=== PATIENT | male | born 1955 | race Caucasian/White ===

== ENCOUNTER 2018-06-24 10:41 | Inpatient (IN) ==
--- NOTE | 2018-06-19 16:10 | MH ---
cc: Dioni Randall MD DATE OF ADMISSION: 06/24/2018 ADMITTING DIAGNOSIS: Osteoarthritic degeneration of the right hip, now being admitted for right total hip arthroplasty. HISTORY OF PRESENT ILLNESS: This pleasant 62-year-old male, known diabetic, is being admitted today for right total hip arthroplasty. PAST MEDICAL HISTORY: Has medical issues including hypertension, arthritis, sleep apnea, and type 2 diabetes. MEDICATIONS: Currently, medications include Amaryl, Jardiance, lisinopril, metformin, omega, omeprazole, rosuvastatin, and tramadol. PAST SURGICAL HISTORY: Include a left total hip arthroplasty. REVIEW OF SYSTEMS: Noncontributory. FAMILY HISTORY: Noncontributory. SOCIAL HISTORY: Does not smoke or drink. ALLERGIES: NO KNOWN ALLERGIES. PHYSICAL EXAMINATION: GENERAL: We find a 62-year-old male, well-developed, well-nourished, alert and oriented x3, complaining of pain in his right hip. VITAL SIGNS: Blood pressure 140/88, pulse 80 and regular, respirations 16, temperature 98.4, pulse oximetry 98% on room air. EYES: PERRL, EOMI. EARS, NOSE, MOUTH: Clear. NECK: Supple. LUNGS: Clear. HEART: Regular rate. ABDOMEN: Soft, positive bowel sounds, nontender. EXTREMITIES: Reveal his right hip to have decreased range of motion. Neurovascularly intact to his toes. IMPRESSION: Severe painful osteoarthritic degeneration of the right hip. PLAN: Admission for right total hip arthroplasty today. Dioni Randall MD JRR/kb/ll , 01:48 PM , 01:55 PM
[2018-06-24] MEDS ORDERED: Vancomycin Inj 1 GM/200 ML PIGGYBACK IV.SIG SCH (11:00)
[2018-06-24] MEDS ORDERED: Vancomycin Inj 1 GM/200 ML PIGGYBACK IV.SIG ONE (11:32)
[2018-06-24] MEDS ORDERED: Phenylephrine/NS 1000 MCG/10ML Syringe IV.PUSH ONE (12:00)
[2018-06-24] MEDS ORDERED: Lidocaine PF 1% Inj 5 ML Syringe INFILTRATN ONE (12:00)
[2018-06-24] MEDS ORDERED: Neostigmine Inj 5 MG/5 ML Syringe IV.PUSH ONE (12:00)
[2018-06-24] MEDS ORDERED: Glycopyrrolate Inj 1 MG/5 ML Syringe IV.PUSH ONE (12:00)
[2018-06-24] MEDS ORDERED: Chlorhexidine 4% Topical 120 APPLIC/120 ML Bottle TOPICAL SCH (12:30)
[2018-06-24] MEDS ORDERED: Chlorhexidine Gluconate 2% 1 Pack (2 Cloths) TOPICAL SCH (12:30)
[2018-06-24] MEDS ORDERED: Metoprolol Tartrate 25 MG Tablet PO SCH (12:30)
[2018-06-24] MEDS ORDERED: Sodium Chlor 0.9% Inj 500 ML IV.SIG SCH (13:00)
[2018-06-24] MEDS ORDERED: TRANEXAMIC ACID IV.SIG SCH ×2 (13:00→16:00)
[2018-06-24] MEDS ORDERED: ceFAZolin 2 GM Premix Inj 2 GM/50 ML PIGGYBACK IV.SIG SCH (13:00)
[2018-06-24] MEDS ORDERED: SODIUM CHLOR 0.9% IV.SIG SCH ×2 (13:00→16:00)
[2018-06-24] MEDS ORDERED: Sodium Chlor 0.9% Inj 40 ML, Bupivacaine Liposo PF 1.3% Inj 20 ML, Bupivacaine PF 0.25%... P-ARTICULR SCH ×3 (13:00)
[2018-06-24] MEDS ORDERED: Post-op Orders (for Pharmacy) OTHER STA (14:58)
[2018-06-24] MEDS ORDERED: Tranexamic Acid Inj 1,000 MG in Sodium Chlor 0.9% Inj 100 ML IV.SIG ONE (14:58)
[2018-06-24] MEDS ORDERED: Bisacodyl 10 MG Supp RECTAL PRN (14:58)
[2018-06-24] MEDS ORDERED: Morphine Inj 4 MG/ML Vial IV.PUSH PRN (14:58)
--- NOTE | 2018-06-24 15:03 | P.DCO ---
- Physical Therapy Order: Evaluate and treat, Improve ambulation, Strength and gait training - Certification I have seen patient Francisco Javier Bailey on 06/24/18. My clinical findings support the need for the requested home health care services because: High risk of falls I certify that my clinical findings support that this patient is homebound because: Post-op weakness, Unsteady gait/balance, Unsafe to leave home unassisted
[2018-06-24] MEDS ORDERED: fentaNYL Citrate Inj 100 MCG/2 ML Ampul ONE ×2 (16:55→16:57)
[2018-06-24] MEDS ORDERED: Dextrose 50% in Water 50 ML Vial IV.PUSH PRN (17:07)
--- NOTE | 2018-06-24 17:49 | MP ---
cc: Dioni Randall MD DATE OF OPERATION: 06/24/2018 DATE OF SURGERY: 06/24/2018 PREOPERATIVE DIAGNOSIS: Osteoarthritic degeneration, right hip. POSTOPERATIVE DIAGNOSIS: Osteoarthritic degeneration, right hip. SURGERY PERFORMED: Right total hip arthroplasty using Aesculap components, size 54 cup with a 36 mm ceramic head and a size 14 lateralized short neck stem. No cement utilized. SURGEON: Dioni Randall MD CARRIER LOADER: EDNA Paula ANESTHESIA: General intubation. PROCEDURE: The patient was brought to the Operating Room, where after successful induction of spinal anesthesia was placed on the operating room table in the left lateral decubitus position. The right hip, thigh and leg were prepped and draped in the usual manner. A posterolateral approach was then utilized by making an incision over the proximal portion of the femur lateral aspect, carried across the greater trochanter, carried posterior in a curved incision toward the buttock. The incision was carried down through the subcutaneous tissue, through the fibers of the tensor fascia josé luis and gluteus aggie to expose the greater trochanteric bursa. This was then removed by sharp and blunt dissection. The hip was then internally rotated to expose the insertions of the short external rotators of the hip and were incised at their insertion into the greater trochanter and reflected posterior to protect the sciatic nerve. These were held with a Charnley retractor to better visualize the hip joint. The capsule was identified and removed by sharp dissection. The hip was then dislocated by internal rotation and flexion of the hip. The femoral calcar was then measured using the trial components for the appropriate length cut of the neck using an oscillating saw. After the cut was made the head was removed. The acetabulum was then approached and measured, the acetabulum reamed with the acetabular reamers. Next, the femoral calcar was approached by first inserting a canal finder followed by rigid reamers, followed by a cookie-cutter to the appropriate size, in this case being a #15. The broach was left in place and a planer used to plane the calcar to a smooth finish. The broach was then removed. The trial components were then inserted into place, the hip reduced, found to track smoothly with no evidence of subluxation or dislocation. All trial components were removed. The wound was irrigated copiously with antibiotic solution and Water Pik. The actual components were then inserted and impacted into place using Aesculap components, size 54 cup with a 36 mm ceramic head and a size 14 lateralized short neck stem. No cement utilized. 60 mL of a mixture of Exparel, normal saline and 0.25% Marcaine plain was used for extra block control in the anterior portion of the hip staying away from the sciatic nerve, which was identified and protected throughout the procedure. Meticulous hemostasis was achieved. Deep fascia approximated with running #2 Quill. Subcutaneous tissue approximated using 3-0 and 4-0 running suture and interrupted and skin approximated with Prineo dressing, knee immobilizer and abduction pillow brace applied. DRAINS: No drain utilized. ESTIMATED BLOOD LOSS: 300 cc. COUNTS: Sponge and suture count correct. CONDITION: The patient tolerated the procedure well and left the operating room in satisfactory condition. NOTE: EDNA Paula, was present during the entire procedure to include patient positioning and the procedure. The medical necessity of a nurse practitioner higher level teaching assistant was indicated in this case due to the surgical complexity of the case itself. During the surgical case, the surgical scheduler was working the back table while my surgical attendant EDNA was directly assisting me. JMD NORMAN Ingram/IRMA , 05:27 PM , 05:32 PM
[2018-06-24] MEDS: *Meperidine Inj 25 MG/ML Vial PERIprocedural Use ONLY ONE ×2 (18:09→18:32)
--- NOTE | 2018-06-24 18:48 | XR ---
EXAM DATE: 06/24/2018 6:15 PM EDT AGE/SEX: 62 years / Male INDICATIONS: Post op right hip. CLINICAL DATA: This is the patient's initial encounter. Patient reports that signs and symptoms have been present for 1 day and indicates a pain score of Nonresponsive. MEDICAL/SURGICAL HISTORY: Non-responsive. Non-responsive. COMPARISON: No prior exams available for comparison. FINDINGS: Postoperative right total hip replacement. Air in soft tissues. Normal alignment on this single view. CONCLUSION: Postop right total hip placement. Electronically signed by: Giorgi Coleman MD 06/24/2018 6:47 PM EDT
[2018-06-24] MEDS: Multivitamin/Minerals Therapeutic Tablet PO SCH (20:44)
[2018-06-24] MEDS: Senna/Docusate Sodium 8.6/50 MG Tablet PO SCH (20:44)
[2018-06-24] MEDS: Lisinopril 20 MG Tablet PO SCH (20:44)
[2018-06-24] MEDS: Insulin NovoLOG Aspart Correctional Sugar Inj SQ SCH (20:46)
[2018-06-24] MEDS ORDERED: VASCEPA 1 GM PO SCH (21:00)
[2018-06-25] MEDS: Senna/Docusate Sodium 8.6/50 MG Tablet PO SCH ×2 (07:54→08:37)
[2018-06-25] MEDS: Lisinopril 20 MG Tablet PO SCH ×2 (07:55→08:37)
[2018-06-25] MEDS: Multivitamin/Minerals Therapeutic Tablet PO SCH ×2 (07:55→08:37)
[2018-06-25] MEDS: Insulin NovoLOG Aspart Correctional Sugar Inj SQ SCH ×2 (07:57→13:16)
[2018-06-25 08:07] LABS: Hematocrit 41.2 % (39.0-51.0); Hemoglobin 13.7 gm/dL (13.0-17.0); Mean Corpuscular HGB Conc 33.3 % (32.0-36.0); Mean Corpuscular Hemoglobin 31.6 pg (27.0-34.0); Mean Corpuscular Volume 95.1 fL (80.0-100.0); Mean Platelet Volume 9.8 fL (7.0-11.0); Platelet Count 141 th/mm3 (150-450); Red Blood Count 4.33 mil/mm3 (4.50-5.90); White Blood Count 12.1 th/mm3 (4.0-11.0)
[2018-06-25 08:33] LABS: Calcium 8.2 mg/dL (8.5-10.1); Carbon Dioxide 25.6 meq/L (21.0-32.0); Potassium 4.7 meq/L (3.5-5.1)
--- NOTE | 2018-06-25 11:09 | P.PNOP ---
Subjective Interval history: Patient comfortable with minimal complaints of pain. Physical Exam Vital signs: Vital Signs 06/24/18 11:50 06/24/18 17:53 06/24/18 18:00 Temperature 99.2 F 98.2 F Pulse Rate 78 100 H 88 Respiratory Rate 16 15 20 Blood Pressure 174/97 H 174/82 H 164/81 H Pulse Oximetry 97 95 06/24/18 18:15 06/24/18 18:30 06/24/18 18:35 Temperature Pulse Rate 82 80 Respiratory Rate 17 18 Blood Pressure 164/81 H 168/79 H Pulse Oximetry 99 97 99 06/24/18 20:00 06/25/18 00:00 06/25/18 04:00 Temperature 97.5 F L 98.1 F 98.0 F Pulse Rate 85 92 H 85 Respiratory Rate 18 18 19 Blood Pressure 131/70 142/73 H 152/70 H Pulse Oximetry 90 L 95 96 06/25/18 10:45 Temperature 98 F Pulse Rate Respiratory Rate 18 Blood Pressure 148/70 H Pulse Oximetry 95 Intake & Output 06/24/18 06/25/18 06/25/18 18:59 06:59 18:59 Intake Total 2459.79 / 2459.79 1789.79 / 1789.79 100 / 100 Output Total 300 / 300 1000 / 1000 400 / 400 Balance 2159.79 / 2159.79 789.79 / 789.79 -300 / -300 Weight 97.9 kg 97.9 kg Intake: IV 359.79 / 359.79 1309.79 / 1309.79 100 / 100 LR 1000 mL Inj 1,000 ML @ 80 1000 / 1000 mls/hr IV.CONT .[id number] [facility] Rx# :[id number] Cyklokapron Inj 979 MG In NS 109.79 / 109.79 109.79 / 109.79 Inj 100 ML @ 219.58 mls/hr IV. SIG CUTTING TABLE OPERATOR [facility] Rx#:[id number] Vancomycin Inj 1 gm In 200 ml @ 200 / 200 0 mls/hr IV.SIG .STK-MED ONE Rx#:[id number] Ancef 2 GM Premix Inj 2 gm In 50 / 50 50 ml @ 100 mls/hr IV.SIG CUTTING TABLE OPERATOR [facility] Rx#:[id number] Ancef Inj 1,000 MG In NS Inj 200 / 200 100 / 100 100 ML @ 200 mls/hr IV.SIG Q6H [facility] Rx#:[id number] Oral 480 / 480 Anesthesia Amount 2100 / 2100 Output: Urine 1000 / 1000 400 / 400 Estimated Blood Loss 300 / 300 Other: Date of Last Bowel Movement 06/24/18 Weight On Admission 97.9 kg Results - Labs CBC & Chem 7: 06/25/18 07:20 06/25/18 07:20 Laboratory Results - last 24 hr 06/24/18 06/24/18 06/24/18 11:25 18:12 19:46 WBC RBC Hgb Hct MCV MCH MCHC RDW Plt Count MPV Sodium Potassium Chloride Carbon Dioxide Anion Gap BUN Creatinine Estimated GFR POC Glucose 144 H 151 H Random Glucose Calcium Blood Type B Positive Blood Type Recheck Required Antibody Screen Negative 06/25/18 06/25/18 06/25/18 07:20 07:20 07:50 WBC 12.1 H RBC 4.33 L Hgb 13.7 Hct 41.2 MCV 95.1 MCH 31.6 MCHC 33.3 RDW 14.0 Plt Count 141 L MPV 9.8 Sodium 137 Potassium 4.7 Chloride 104 Carbon Dioxide 25.6 Anion Gap 7 BUN 18 Creatinine 0.96 Estimated GFR 80 L POC Glucose 150 H Random Glucose 146 H Calcium 8.2 L Blood Type Blood Type Recheck Antibody Screen 06/25/18 11:04 WBC RBC Hgb Hct MCV MCH MCHC RDW Plt Count MPV Sodium Potassium Chloride Carbon Dioxide Anion Gap BUN Creatinine Estimated GFR POC Glucose 146 H Random Glucose Calcium Blood Type Blood Type Recheck Antibody Screen - Imaging Impressions Hip X-Ray 06/24/18 00:00 CONCLUSION: Postop right total hip placement. Assessment and Plan - Attending Attestation Attending Attestation: Dressing is dry and intact. Wound is clean and dry. He is neurovascularly intact to his toes with no calf tenderness. Plan is for patient to continue with therapy and be discharged later today. Home with home health care and follow-up in the office next week.
--- NOTE | 2018-06-25 13:45 | P.CONIM ---
History of Present Illness Requesting Physician: Joann Randall Reason for Consult: Diabetes mellitus Primary Care Provider: Mariela Love MD Family Provider: Mariela Love MD History of Present Illness: This is a pleasant 62-year-old male patient with past medical history which includes hypertension, sleep apnea and does use home CPAP, diabetes mellitus type 2. Patient is status post Right total hip arthroplasty 06/24/[address] Randall. We have been consulted for assistance with postoperative medical management including diabetes mellitus. Patient reports he is doing well offers no medical complaints at this time. Patient denies shortness of breath chest pain nausea vomiting diarrhea constipation fevers or chills. In fact patient looking forward to discharge later today Review of Systems All other systems reviewed negative except as stated in HPI PMFSH - History History Provided By: Patient - Medical History Medical History: Medical History (Last Reviewed 06/25/18 @ 09:13 by Alee Zapata) COPD (chronic obstructive pulmonary disease) Diabetes Hearing loss Hx of pancreatitis Hyperlipidemia Hypertension Presence of orthopedic joint implant Sleep apnea with use of continuous positive airway pressure (CPAP) Stroke - Surgical History Surgical History: Surgical History (Last Reviewed 06/25/18 @ 09:13 by Alee Zapata) Hx of surgical amputation of finger Status post total hip replacement, right - Tobacco History Second Hand Smoke Exposure: No Tobacco Use In Past 30 Days: Yes Smoking Status: Current every day smoker Tobacco Type: Cigarettes - Alcohol History How Often Do You Have a Drink Containing Alcohol: 2 to 3 times a week - Substance Use History Substance History: No History of Abuse - Travel History Recent Travel in the [place] Within the Last 8 Weeks: No Recent Travel Out of the Country Within the Last 8 Weeks: No - Immunization History Tetanus Immunization: Unsure Hx Influenza Vaccine This Season: Yes Medications and Allergies Active Medications: Active Medications Hydrocodone Bitart/Acetaminophen ([place] 7.5/325) 1 tab PO Q4H PRN PRN Reason: PAIN LESS THAN 5 ON SCALE Hydrocodone Bitart/Acetaminophen ([place] 7.5/325) 2 tab PO Q6H PRN PRN Reason: PAIN SCALE 5 TO 10 Last Admin: 06/25/18 13:15 Dose: 2 tab Al Hydroxide/Mg Hydroxide (Milk Of Magnesia Liq) 30 ml PO BID PRN PRN Reason: Mild Constipation Albuterol (Ventolin Hfa Inh) 1 puff INH Q4H PRN PRN Reason: SHORTNESS OF BREATH/WHEEZING Apixaban (Eliquis) 2.5 mg PO BID [facility] Last Admin: 06/25/18 12:51 Dose: 2.5 mg Aspirin (Ecotrin) 81 mg PO DAILY [facility] Last Admin: 06/25/18 08:36 Dose: Not Given Atorvastatin Calcium (Lipitor) 80 mg PO HS [facility] Last Admin: 06/24/18 20:44 Dose: 80 mg Bisacodyl (Dulcolax Supp) 10 mg RECTAL DAILY PRN PRN Reason: SEVERE CONSITIPATION Chlorhexidine Gluconate (Chlorhexidine 2% Cloth) 3 pack TOPICAL INFORMATION SERVICES VICE PRESIDENT [facility] Stop: 06/27/18 12:18 Chlorhexidine Gluconate (Hibiclens 4% Topical) 1 applicatio TOPICAL ONCE [facility] Stop: 06/28/18 12:29 Clonidine HCl (Catapres) 0.1 mg PO Q6H PRN PRN Reason: SBP>180, DBP>95 Dextrose (D50w Vial) 50 ml IV.PUSH UNSCH PRN PRN Reason: PER HYPOGLYCEMIA PROTOCOL Glucagon (Glucagon Inj) 1 mg OTHER PRN PRN PRN Reason: for Hypoglycemia Protocol Lactated Ringer's (Lr 1000 Ml Inj) 1,000 mls @ 30 mls/hr IV.SIG .Q24H [facility] Stop: 06/27/18 12:18 Last Admin: 06/24/18 18:31 Dose: Not Given Sodium Chloride (Ns Inj) 500 mls @ 30 mls/hr IV.SIG .Q10H [facility] Stop: 06/27/18 12:18 Vancomycin/Sodium Chloride (Vancomycin Inj) 1 gm in 200 mls @ 200 mls/hr IV.SIG INFORMATION SERVICES VICE PRESIDENT [facility] Stop: 06/28/18 10:59 Cefazolin Sodium/Dextrose (Ancef 2 Gm Premix Inj) 2 gm in 50 mls @ 100 mls/hr IV.SIG INFORMATION SERVICES VICE PRESIDENT [facility] Stop: 06/28/18 12:59 Last Infusion: 06/24/18 15:45 Dose: Infused Lactated Ringer's (Lr 1000 Ml Inj) 1,000 mls @ 80 mls/hr IV.CONT .[id number] [facility] Last Infusion: 06/25/18 06:38 Dose: Infused Insulin Aspart (Novolog Insulin Correctional Sugar Inj) 0 unit SQ ACHS [facility]; Protocol Last Admin: 06/25/18 13:16 Dose: Not Given Lactulose (Lactulose Liq) 30 ml PO DAILY PRN PRN Reason: SEVERE CONSITIPATION Lisinopril (Prinivil) 20 mg PO BID [facility] Last Admin: 06/25/18 08:37 Dose: Not Given Metformin HCl (Glucophage) 1,000 mg PO DAILY [facility] Last Admin: 06/25/18 08:36 Dose: Not Given Metoprolol Tartrate (Lopressor) 25 mg PO INFORMATION SERVICES VICE PRESIDENT [facility] Stop: 06/27/18 12:18 Miscellaneous Information ([facility] [facility]) 1 each OTHER UNSCH PRN PRN Reason: SEE LABEL COMMENTS Stop: 06/25/18 17:55 Morphine Sulfate (Morphine Inj) 2 mg IV.PUSH Q3H PRN PRN Reason: BREAKTHROUGH PAIN Last Admin: 06/24/18 19:40 Dose: 2 mg Multivitamins/Minerals (Theragran-M) 1 tab PO BID [facility] Stop: 08/23/18 20:59 Last Admin: 06/25/18 08:37 Dose: Not Given Ondansetron HCl (Zofran Odt) 4 mg PO Q6H PRN PRN Reason: NAUSEA OR VOMITING Pantoprazole Sodium (Protonix) 40 mg PO DAILY [facility] Last Admin: 06/25/18 08:37 Dose: Not Given Patient Own Medication: Jardiance ( Empagliflozin) 25mg Tablet 1 each PO DAILY [facility] Patient Own Medication: Vascepa 1 Gram Capsule 1 each PO BID [facility] Povidone Iodine (Betadine 5% Antisepsis Kit) 1 applicatio EACH NARE INFORMATION SERVICES VICE PRESIDENT [facility] Stop: 06/27/18 12:18 Senna/Docusate Sodium (Ximena-Colace) 1 tab PO BID [facility] Last Admin: 06/25/18 08:37 Dose: Not Given Sennosides (Senokot) 17.2 mg PO BID PRN PRN Reason: Moderate Constipation Last Admin: 06/25/18 07:55 Dose: 17.2 mg Sodium Chloride (Ns Flush) 2 ml IV.FLUSH BID [facility] Last Admin: 06/25/18 08:37 Dose: Not Given Sodium Chloride (Ns Flush) 2 ml IV.FLUSH UNSCH PRN PRN Reason: FLUSH AFTER USING IV ACCESS Allergies Allergy/AdvReac Type Severity Reaction Status Date / Time No Known Allergies Allergy Verified 06/24/18 11:24 Home Medications Medication Instructions Recorded Confirmed Type albuterol sulfate 1 puff INHALATION Q4-6H PRN 06/17/18 06/24/18 History aspirin [Aspir-81] 81 mg PO DAILY 06/17/18 06/17/18 History empagliflozin [Jardiance] 25 mg PO DAILY 06/17/18 06/24/18 History etanercept [Enbrel SureClick] 50 mg SUB-Q QWEEK 06/17/18 06/24/18 History icosapent ethyl [Vascepa] 2 g PO BID 06/17/18 06/24/18 History lisinopril 20 mg PO BID 06/17/18 06/24/18 History metformin 1,000 mg PO DAILY 06/17/18 06/24/18 History omeprazole 40 mg PO DAILY 06/17/18 06/24/18 History rosuvastatin 40 mg PO HS 06/17/18 06/24/18 History Exam Vital signs: Vital Signs 06/24/18 17:53 06/24/18 18:00 06/24/18 18:15 Temperature 98.2 F Pulse Rate 100 H 88 82 Respiratory Rate 15 20 17 Blood Pressure 174/82 H 164/81 H 164/81 H Pulse Oximetry 97 95 99 06/24/18 18:30 06/24/18 18:35 06/24/18 20:00 Temperature 97.5 F L Pulse Rate 80 85 Respiratory Rate 18 18 Blood Pressure 168/79 H 131/70 Pulse Oximetry 97 99 90 L 06/25/18 00:00 06/25/18 04:00 06/25/18 10:45 Temperature 98.1 F 98.0 F 98 F Pulse Rate 92 H 85 Respiratory Rate 18 19 18 Blood Pressure 142/73 H 152/70 H 148/70 H Pulse Oximetry 95 96 95 06/25/18 12:18 Temperature 98 F Pulse Rate 81 Respiratory Rate 18 Blood Pressure 117/62 Pulse Oximetry 95 Intake & Output 06/24/18 06/25/18 06/25/18 18:59 06:59 18:59 Intake Total 2459.79 / 2459.79 1789.79 / 1789.79 100 / 100 Output Total 300 / 300 1000 / 1000 400 / 400 Balance 2159.79 / 2159.79 789.79 / 789.79 -300 / -300 Weight 97.9 kg 97.9 kg Intake: IV 359.79 / 359.79 1309.79 / 1309.79 100 / 100 LR 1000 mL Inj 1,000 ML @ 80 1000 / 1000 mls/hr IV.CONT .[id number] [facility] Rx# :[id number] Cyklokapron Inj 979 MG In NS 109.79 / 109.79 109.79 / 109.79 Inj 100 ML @ 219.58 mls/hr IV. SIG INFORMATION SERVICES VICE PRESIDENT [facility] Rx#:[id number] Vancomycin Inj 1 gm In 200 ml @ 200 / 200 0 mls/hr IV.SIG .STK-MED ONE Rx#:[id number] Ancef 2 GM Premix Inj 2 gm In 50 / 50 50 ml @ 100 mls/hr IV.SIG INFORMATION SERVICES VICE PRESIDENT [facility] Rx#:[id number] Ancef Inj 1,000 MG In NS Inj 200 / 200 100 / 100 100 ML @ 200 mls/hr IV.SIG Q6H [facility] Rx#:[id number] Oral 480 / 480 Anesthesia Amount 2100 / 2100 Output: Urine 1000 / 1000 400 / 400 Estimated Blood Loss 300 / 300 Other: Date of Last Bowel Movement 06/24/18 Weight On Admission 97.9 kg Narrative: GENERAL: This is a well-nourished, well-developed patient, in no apparent distress. SKIN: Postop dressing right hip dry and intact CARDIOVASCULAR: Regular rate and rhythm RESPIRATORY: Clear to auscultation. Breath sounds equal bilaterally. GASTROINTESTINAL: Abdomen soft, non-tender, nondistended. Normal active bowel sounds MUSCULOSKELETAL: Extremities without clubbing, cyanosis, or edema. NEURO: Alert & Oriented x4 to person, place, time, situation. Moves all ext x4 Results - Labs CBC & Chem 7: 06/25/18 07:20 06/25/18 07:20 Labs: Laboratory Results - last 24 hr 06/24/18 06/24/18 06/25/18 18:12 19:46 07:20 WBC 12.1 H RBC 4.33 L Hgb 13.7 Hct 41.2 MCV 95.1 MCH 31.6 MCHC 33.3 RDW 14.0 Plt Count 141 L MPV 9.8 Sodium Potassium Chloride Carbon Dioxide Anion Gap BUN Creatinine Estimated GFR POC Glucose 144 H 151 H Random Glucose Calcium 06/25/18 06/25/18 06/25/18 07:20 07:50 11:04 WBC RBC Hgb Hct MCV MCH MCHC RDW Plt Count MPV Sodium 137 Potassium 4.7 Chloride 104 Carbon Dioxide 25.6 Anion Gap 7 BUN 18 Creatinine 0.96 Estimated GFR 80 L POC Glucose 150 H 146 H Random Glucose 146 H Calcium 8.2 L - Imaging Impressions Hip X-Ray 06/24/18 00:00 CONCLUSION: Postop right total hip placement. Assessment and Plan - Plan Osteoarthritic degeneration, right hip. S/P Right total hip arthroplasty with Dr. Randall 06/24/2019 DVT prophylaxis per orthopedic surgery Diabetes mellitus Accu-Cheks before meals at bedtime with sliding scale coverage as needed Continue patient's home guardians 25 mg p.o. daily and metformin 1000 mg p.o. daily Hypertension Continue patient's home medications Monitor blood pressure trend Sleep apnea Patient may use home CPAP device DVT prophylaxis per orthopedic surgery patient currently on Eliquis 2.5mg p.o. twice daily Case discussed with supervising physician Dr. Herrera
== END 2018-06-25 15:27 | disposition home health service (06) ==
LOC: HSDI 10:41 → N06 18:51
PROVIDERS: ADMIT Surgery; ATTEND Surgery
DX: I12.9 Hypertensive chronic kidney disease with stage 1 through stage 4 chronic kidney disease, or unspecified chronic kidney disease; L40.9 Psoriasis, unspecified; Z68.33 Body mass index [BMI] 33.0-33.9, adult; E78.5 Hyperlipidemia, unspecified; E11.40 Type 2 diabetes mellitus with diabetic neuropathy, unspecified; E11.22 Type 2 diabetes mellitus with diabetic chronic kidney disease; H91.90 Unspecified hearing loss, unspecified ear; Z96.642 Presence of left artificial hip joint; N18.2 Chronic kidney disease, stage 2 (mild); Z79.84 Long term (current) use of oral hypoglycemic drugs; Z79.02 Long term (current) use of antithrombotics/antiplatelets; J44.9 Chronic obstructive pulmonary disease, unspecified; G47.30 Sleep apnea, unspecified; M16.11 Unilateral primary osteoarthritis, right hip; Z79.82 Long term (current) use of aspirin; F17.210 Nicotine dependence, cigarettes, uncomplicated; E66.9 Obesity, unspecified